=== PATIENT | male | born 1985 | race Caucasian/White ===

== ENCOUNTER 2019-05-31 01:31 | Emergency (ER) | payer MEDICAID, OTHER ==
[2019-05-31] MEDS ORDERED: OLANZAPINE 10 MG/VIAL IM ONE (05:00)
[2019-05-31 05:18] LABS: BASOPHILS % 0.5 % (0.0-2.0); EOSINOPHILS % 0.1 % (0.0-5.0); HEMATOCRIT. 37.1 % (42.0-52.0); HEMOGLOBIN. 12.6 g/dL (14.0-18.0); LYMPHOCYTES % 14.3 % (20.0-50.0); MEAN CORPUSCULAR HEMOGLOBIN 29.2 pg (28.0-32.0); MEAN CORPUSCULAR VOLUME 85.9 fL (80.0-94.0); MEAN PLATELET VOLUME 7.2 fl (7.4-10.4); MONOCYTES % 9.6 % (2.0-8.0); NEUTROPHILS % 75.5 % (40.0-76.0); PLATELET 322 x1000/uL (130-400); RED BLOOD CELL COUNT 4.31 mill/uL (4.7-6.1); RED CELL DISTRIBUTION WIDTH 14.7 % (11.6-14.6)
[2019-05-31 05:24] LABS: CHLORIDE 109 mEq/L (98-107)
[2019-05-31 05:28] LABS: ETHANOL BLOOD < 10 mg/dL
[2019-05-31 06:06] LABS: CLARITY URINE CLEAR (CLEAR); COLOR URINE YELLOW (YELLOW); KETONES URINE TRACE (NEGATIVE); LEUKOCYTE ESTERASE URINE NEGATIVE (NEGATIVE); NITRITE URINE NEGATIVE (NEGATIVE); OCCULT BLOOD URINE 2+ (NEGATIVE); PROTEIN URINE TRACE (NEGATIVE); SPECIFIC GRAVITY URINE 1.025 (1.005-1.030); UROBILINOGEN URINE 0.2 E.U./dL (0.2-1.0)
[2019-05-31 06:31] LABS: CANNABINOID URINE SCREEN NEGATIVE (NEGATIVE); METHADONE URINE SCREEN NEGATIVE (NEGATIVE); OPIATES URINE SCREEN PRESUMTIVE POSITIVE (NEGATIVE); PHENCYCLIDINE URINE SCREEN NEGATIVE (NEGATIVE)
[2019-05-31 06:32] LABS: *AMPHETAMINES SCREEN URINE PRESUMTIVE POSITIVE (NEGATIVE); *BARBITURATES SCREEN URINE NEGATIVE (NEGATIVE); *BENZODIAZEPINES SCREEN URINE PRESUMTIVE POSITIVE (NEGATIVE); *COCAINE SCREEN URINE NEGATIVE (NEGATIVE)
[2019-05-31 17:37] VITALS: BP 120/78
== END 2019-05-31 17:38 | disposition home or self-care (01) ==
LOC: ER 01:31
DX: Z00.00 Encounter for general adult medical examination without abnormal findings (principal); Z59.0 Homelessness; F20.9 Schizophrenia, unspecified
CPT/HCPCS: 36415; 80305; 80307; 80320; 80329; 81003; 82140; 84443; 99283; G0480